=== PATIENT | female | born 1965 | race Hispanic/Latino ===

== ENCOUNTER → 2018-10-06 | Outpatient (CLI) | payer BC ==
--- NOTE | 2018-10-13 08:28 | Diagnostic Imaging Report ---
#[id number] - MGSCRBIL #BILATERAL DIGITAL SCREENING MAMMOGRAM WITH CAD: 10/06/2018 CLINICAL: Routine screening. Comparison is made to exams dated: 07/14/2017 mammogram and 06/04/2017 mammogram - [facility] [place]. Current study contains 6 films. The tissue of both breasts is extremely dense, which lowers the sensitivity of mammography. Current study was also evaluated with a Computer Aided Detection (CAD) system. There are benign calcifications in both breasts. No significant masses, calcifications, or other findings are seen in either breast. There has been no significant interval change. IMPRESSION: BENIGN There is no mammographic evidence of malignancy. A 1 year screening mammogram is recommended. The patient will be notified by letter of the results. Faustino orellana/jackie:10/12/2018 16:18:33 Lumber Cutter: Kaylee NGO(R)(M), [facility] letter sent: Compared to Prior B9 Mammogram BI-RADS: 2 Benign
== END ==
LOC: MAMMO 11:01
PROVIDERS: ATTEND Internal Medicine
DX: Z12.31 Encounter for screening mammogram for malignant neoplasm of breast (principal)
CPT/HCPCS: 77067

== ENCOUNTER → 2019-01-19 | Outpatient (CLI) | payer BC ==
--- NOTE | 2019-01-19 14:42 | Diagnostic Imaging Report ---
Exam: Bone mineral density study. Indication: Osteoporosis. The patient history questionnaire was completed and is available on PACS. Comparison: None Discussion: Evaluation of the left hip and lumbar spine was performed. The study is technically adequate. The patient's fracture risk is compared to an age-matched control. The patient denies prior surgery/fracture of the spine, hips or forearm. Left femoral neck bone mineral density: 0.863 g/cm2, T-score is -0.1, Z-score is 0.9. Left hip total bone mineral density: 0.973 g/cm2, T-score is 0.1, Z-score is 0.8. Lumbar spine total bone mineral density: 0.918 gm/cm2, T-score is -1.2, Z-score is -0.1. Impression: 1. Bone mineralization shows osteopenia. Fracture risk is moderate. 2. With a Z score of -0.1, the bone mineral density is normal for someone of this age. However, bone mineral density is osteopenic relative to young adult normals. Recommendations: Medical evaluation for secondary causes of low bone mineral density may be appropriate. Correlate clinically for the necessity and timing of the next bone mineral density study. Staff: Castro Signed by: Dr. Raul Erazo M.D. on 01/19/2019 2:39 PM
== END ==
LOC: DX 10:56
PROVIDERS: ATTEND Internal Medicine
DX: M81.0 Age-related osteoporosis without current pathological fracture (principal)
CPT/HCPCS: 77080

== ENCOUNTER 2019-08-26 19:04 | Inpatient (IN) | payer BC ==
[~2019-08-26] VITALS: Ht 157.5 cm; Wt 94.5 kg
[~2019-08-26 19:04] MED LIST changes: -ATORVASTATIN CA20 MG PO; -DIATRIZOATE MEGL/DIATRIZOA SOD 30 ML BTL PO ONE; +FENTANYL CITRATE/PF 100MCG/2 ML INJ ONE; -IOPAMIDOL 370 MG/ML 200 ML INFUS..BTL INJ ONE; -LISINOPRIL10 MG PO; -METFORMIN HCL500 MG PO; +MIDAZOLAM HCL 2 MG/2 ML VIAL ONE; -SODIUM CHLORIDE 0.9% 50ML 50 ML ONE
[2019-08-26] MEDS ORDERED: ONDANSETRON HCL INJ 2MG/ML 2ML 2 MG/ML VIAL IV ONE (19:06)
[2019-08-26] MEDS ORDERED: LEVOFLOXACIN 750MG/D5W 150ML 150 ML IV ONE (19:06)
[2019-08-26] MEDS ORDERED: SODIUM CHLORIDE 0.9% 1000ML 1,000 ML IV STA ×2 (19:06)
[2019-08-26] MEDS ORDERED: FAMOTIDINE 20 MG/2 ML VIAL IV ONE (19:06)
[2019-08-26] MEDS ORDERED: MORPHINE SULFATE 2 MG/ML SYR 1ML IV ONE (19:06)
[2019-08-26] MEDS ORDERED: METRONIDAZOLE 500MG/NS 100ML 100 ML IV ONE (19:06)
--- OUTSIDE RECORDS SUMMARY | 2019-08-26 19:06 | XMS REPORT ---
Author Author [facility] Address Unknown Phone Unavailable Care Team Providers Care Home Theater Experience Expert Name Role Phone Verna NARAYANAN Unavailable Unavailable Problems This patient has no known problems. Allergies, Adverse Reactions, Alerts This patient has no known allergies or adverse reactions. Medications This patient has no known medications. Results Test Description Test Time Test Comments Text Results Atomic Results Result Comments CT ABDOMEN/PELVIS W 2019-08-26 18:48:00 [place] [address] Patient Name: NANNETTE QUINTEROS MR #: [id number] : 1965 Age/Sex: 54/F Req #: [id number] [facility] Physician: Ordered by: CHARAN NARAYANAN MD Report #: [id number] Location: CT Room/Bed: Procedure: [id number] CT/CT ABDOMEN/PELVIS W Exam Date: 08/26/19 Exam Time: 1830 REPORT STATUS: Signed EXAM: CT Abdomen and Pelvis WITH contrast INDIC ATION: Right lower abdominal pain. Diverticulitis. Hypertension. Diabetes. White blood cell count high COMPARISON: None. TECHNIQUE: Abdomen and pelvis were scanned utilizing a multidetector helical scanner from the lung base to the pubic symphysis after administration of IV contrast. Coronal and sagittal reformations were obtained. Routine protocol was performed. Scan was performed when during portal venous phase. IV CONTRAST: 100 mL of Isovue 370 ORAL CONTRAST: Gastrografin COMPLICATIONS: None RADIATION DOSE: Total DLP: 818 mGy*cm Estimated effective dose: (DLP x 0.015 x size factor) mSv CTDIvol has been reviewed. It is below the limits set by the Radiation Protocol Committee (RPC). Dose modulation, iterative reconstruction, and/or weight based adjustment of the mA/kV was utilized to reduce the radiation dose to as low as reasonably achievable. FINDINGS: LINES and TUBES: None. LOWER THORAX: Unremarkable HEPATOBILIARY: No focal hepatic lesions. No biliary ductal dilation. GALLBLADDER: No radio-opaque stones or sludge. No wall thickening. SPLEEN: No splenomegaly. PANCREAS: No focal masses or ductal dilatation. ADRENALS: 1 cm solid right adrenal gland nodule incompletely characterized. KIDNEYS/URETERS: Kidneys enhance symmetrically. No hydronephrosis. No cystic or solid mass lesions. No stones. GI TRACT: Marked inflammatory change and suspected abscess in the region of the appendix/proximal colon measuring approximately 5.3 cm. Enlarged lymph node in the right lower quadrant of the abdomen with adjacent inflammatory change in the fat. Suspected appendicolith. Findings consistent with acute appendicitis with abscess formation. No definite free air is seen. PELVIC ORGANS/BLADDER: Unremarkable. LYMPH NODES: No lymphadenopathy. VESSELS: Unremarkable. PERITONEUM / RETROPERITONEUM: No free air or fluid. BONES: Unremarkable. SOFT TISSUES: Unremarkable. IMPRESSION: 1. Marked inflammatory change and suspected abscess in the region of the appendix/proximal colon measuring approximately 5.3 cm. Enlarged lymph node in the right lower quadrant of the abdomen with adjacent inflammatory change in the fat. Suspected appendicolith. Findings consistent with acute appendicitis with abscess formation. No definite free air is seen. 2. 1 cm solid right adrenal gland nodule incompletely characterized. Nonemergent MRI adrenal mass protocol recommended. 3. Findings were c onveyed to the ordering physician Dr. Narayanan by the fish technologist and the patient was advised to proceed to the emergency department. Findings discussed with the ER physician Dr. Polk by Dr. Montes De Oca on 08/26/2019 at 6:56 PM Signed by: Dr. Wesly Montes De Oca M.D. on 08/26/2019 6:59 PM Dictated By: WESLY MONTES DE OCA MD, MD 58 Transcribed By: PIPO on 08/26/191858 COPY TO: CHARAN NARAYANAN MD BONE DXA DUAL ENERGY 2019-01-19 11:59:00 [place] [address] Patient Name: NANNETTE QUINTEROS MR #: [id number] : 1965 Age/Sex: 53/F Req #: [id number] Adm Physician: Ordered by: CHARAN NARAYANAN MD Report #: [id number] Location: DX Room/Bed: Procedure: [id number] DX/BONE DXA DUAL ENERGY Exam Date: Exam Time: REPORT STATUS: Signed Exam: Bone mineral density study. Indication: Osteoporosis. The patient history questionnaire was completed and is available on PACS. Comparison: None Discussion: Evaluation of the left hip and lumbar spine was performed. The study is technically adequate. The patient's fracture risk is compared to an age-matched control. The patient denies prior surgery/fracture of the spine, hips or forearm. Left femoral neck bone mineral density: 0.863 g/cm2, T-score is -0.1, Z-score is 0.9. Left hip total bone mineral density: 0.973 g/cm2, T-score is 0.1, Z-score is 0.8. Lumbar spine total bone mineral density: 0.918 gm/cm2, T-score is -1.2, Z- score is -0.1. Impression: 1. Bone mineralization shows osteopenia. Fracture risk is moderate. 2. With a Z score of -0.1, the bone mineral density is normal for someone of this age. However, bone mineral density is osteopenic relative to young adult normals. Recommendations: Medical evaluation for secondary causes of low bone mineral density may be appropriate. Correlate clinically for the necessity and timing of the next bone mineral density study. Staff: Castro Signed by: Dr. Mervin Romero M.D. on 01/19/2019 2:39 PM Dictated By: MERVIN ROMERO MD 38 Transcribed By: PIPO on 01/19/191438 COPY TO: CHARAN NARAYANAN MD MAMMOGRAPHY DIGITAL SCR BILAT 2018-10-06 12:31:00 [place] [address] Patient Name: NANNETTE QUINTEROS MR #: [id number] : 1965 Age/Sex: 53/F Req #: [id number] [facility] Physician: Ordered by: CHARAN NARAYANAN MD Report #: [id number] Location: MAMMO Room/Bed: Procedure: [id number] MG/MAMMOGRAPHY DIGITAL SCR BILAT Exam Date: 10/06/18 Exam Time: 1125 REPORT STATUS: Signed #[id number] - MGSCRBIL #BILATERAL DIGITAL SCREENING MAMMOGRAM WITH CAD: 10/06/2018 CLINICAL: Routine screening. Comparison is made to exams dated: 07/14/2017 mammogram and 06/04/2017 mammogram - [facility] [place]. Current study contains 6 films. The tissue of both breasts is extremely dense, which lowers the sensitivity of mammography. Current study was also evaluated with a Computer Aided Detecti on (CAD) system. There are benign calcifications in both breasts. No significant masses, calcifications, or other findings are seen in either breast. There has been no significant interval change. IMPRESSION: BENIGN There is no mammographic evidence of malignancy. A 1 year screening mammogram is recommended. The patient will be notified by letter of the results. Marilu orellana/jannette:10/12/2018 16:18:33 Rail Signal Worker: Kaylee NGO(Mary Anne)(M), [facility] letter sent: Compared to Prior B9 Mammogram BI-RADS: 2 Benign Dictated By: MARILU MILLIGAN DO 17 Transcribed By: JANNETTE on 10/12/181617 COPY TO: CHARAN NARAYANAN MD US BREAST COMPLETE LEFT [place] [address] Patient Name: NANNETTE QUINTEROS MR #: [id number] : 1965 Age/Sex: 52/F Req #: [id number] Adm Physician: Ordered by: CHARAN NARAYANAN MD Report #: [id number] Location: MAMMO Room/Bed: Procedure: [id number] US/US BREAST COMPLETE LEFT Exam Date: 07/14/17 Exam Time: 1126 REPORT STATUS: Signed #[id number] - USBRECOMLT ULTRASOUND OF THE LEFT BREAST : 07/14/2017 No prior exams were available for comparison. Color flow and real-time ultrasound were performed on the entire left breast with scanning in all four quadrants, retroareolar region and the left axilla. No cystic or solid abnormality is identified. IMPRESSION: NEGATIVE There is no sonographic evidence of malignancy. A 1 year screening mammogram is recommended. Marilu Milligan Jr., D.O. cw/:07/14/2017 12:09:35 Rail Signal Worker: BATOOL NGO, [facility] letter sent: Normal Exam Ultrasound BI-RADS: 1 Negative Dictated By: MRAILU MILLIGAN DO 120 Transcribed By: JANNETTE on 07/14/17 120 COPY TO: CHARAN NARAYANAN MD MAMMOGRAPHY DIGITAL DX UNI LT [place] [address] Patient Name: NANNETTE QUINTEROS MR #: [id number] : 1965 Age/Sex: 52/F Req #: [id number] Adm Physician: Ordered by: CHARAN NARAYANAN MD Report #: [id number] Location: MAMMO Room/Bed: Procedure: [id number] MG/MAMMOGRAPHY DIGITAL DX UNI LT Exam Date: 07/14/17 Exam Time: 1036 REPORT STATUS: Signed #[id number] - MGDXLT #UNILATERAL LEFT DIGITAL DIAGNOSTIC MAMMOGRAM WITH SPOT COMPRESSION: 07/14/2017 Comparison is made to exams dated: 06/04/2017 mammogram and 04/15/2016 mammogram - [facility] [place]. Current study contains 2 films. The tissue of the left breast is heterogeneously dense. This may lower the sensitivity of mammography. The density identified on the prior mammogram as appearing more prominent appears to press out. However, ultrasound will be carried out to help exclude subtle lesions. No significant masses, calcifications, or other findings are seen in the breast. IMPRESSION: INCOMPLETE: NEEDS ADDITIONAL IMAGING EVALUATION No definite mass identified with focal spot compression. Ultrasound of the left breast will be performed today to help exclude a subtle lesison. Marilu Milligan Jr., D.O. cw/:07/14/2017 15:11:33 Rail Signal Worker: Kaylee CHOWDARY)(M)[facility] Mammogram BI-RADS: 0 Indeterminate Dictated By: MARILU MILLIGAN DO 10 Transcribed By: JANNETTE on 07/14/171510 COPY TO: CHARAN NARAYANAN MD
[2019-08-26] MEDS ORDERED: SODIUM CHLORIDE 0.9% 1000ML 1,000 ML IV SCH (19:24)
[2019-08-26] MEDS ORDERED: ONDANSETRON HCL INJ 2MG/ML 2ML 2 MG/ML VIAL IV PRN (19:30)
[2019-08-26] MEDS ORDERED: MORPHINE SULFATE 2 MG/ML SYR 1ML IV PRN (19:30)
[2019-08-26] MEDS ORDERED: DEXTROSE 50% SYRINGE 50 ML IV PRN (19:30)
[2019-08-26] MEDS ORDERED: PROPOFOL IV EMULSION 10 MG/ML 20 ML VIAL ONE (19:38)
[2019-08-26] MEDS ORDERED: DEXAMETHASONE SOD PHOS INJ 4 MG/ML VIAL ONE (19:38)
[2019-08-26] MEDS ORDERED: ACETAMINOPHEN 1000 MG/100 ML IV ONE (19:38)
[2019-08-26] MEDS ORDERED: ONDANSETRON HCL INJ 2MG/ML 2ML 2 MG/ML VIAL ONE ×2 (19:38→22:39)
[2019-08-26] MEDS ORDERED: KETOROLAC TROMETHAMINE 30 MG/ML VIAL ONE (19:38)
[2019-08-26] MEDS ORDERED: SUCCINYLCHOLINE 200 MG/10 ML SYR ONE (19:38)
[2019-08-26] MEDS ORDERED: ROCURONIUM BROMIDE 10 MG/ML 5ML VIAL ONE (19:38)
[2019-08-26] MEDS ORDERED: LIDOCAINE HCL 2% LOCAL INJ 5 ML SDV VIAL INJ ONE (19:38)
--- NOTE | 2019-08-26 20:19 | Diagnostic Imaging Report ---
EXAMINATION: CHEST SINGLE (PORTABLE) INDICATION: Cough. Appendicitis ^ERMD ORDER ^[id number] ^2009 ^Y COMPARISON: None FINDINGS: TUBES and LINES: None. LUNGS: Lungs are well inflated. Lungs are clear. There is no evidence of pneumonia or pulmonary edema. PLEURA: No pleural effusion or pneumothorax. HEART AND MEDIASTINUM: The cardiomediastinal silhouette is unremarkable. BONES AND SOFT TISSUES: No acute osseous lesion. Soft tissues are unremarkable. UPPER ABDOMEN: No free air under the diaphragm. IMPRESSION: No acute thoracic abnormality. Signed by: Dr. Wesly Montes De Oca M.D. on 08/26/2019 8:16 PM
[2019-08-26 20:29] LABS: BASOPHILS % 0.4 % (0.0-1.0); EOSINOPHILS # (AUTO) 0.1 (0.0-0.4); EOSINOPHILS % 0.9 % (0.0-6.0); HEMATOCRIT 35.2 % (34.2-44.1); HEMOGLOBIN 11.3 g/dL (12.0-16.0); LYMPHOCYTES # (AUTO) 2.5 (1.0-3.2); LYMPHOCYTES % 23.5 % (18.0-39.1); MEAN CORPUSCULAR HEMOGLOBIN 29.1 pg (28-32); MEAN CORPUSCULAR HGB CONC 32.1 g/dL (31-35); MEAN CORPUSCULAR VOLUME 90.7 fL (81-99); MONOCYTES # (AUTO) 0.9 (0.2-0.8); MONOCYTES % 8.9 % (4.4-11.3); NEUTROPHILS # (AUTO) 6.9 (2.1-6.9); NEUTROPHILS % 65.4 % (38.7-80.0); PLATELET COUNT 350 x10e3/uL (140-360); RED BLOOD COUNT 3.88 x10e6/uL (3.6-5.1); RED CELL DISTRIBUTION WIDTH 13.9 % (11.7-14.4)
[2019-08-26 20:42] LABS: BILIRUBIN,URINE NEGATIVE (NEGATIVE); CLARITY,URINE SL CLOUDY (CLEAR); COLOR,URINE YELLOW (YELLOW); KETONES,URINE 1+ (NEGATIVE); LEUKOCYTE ESTERASE ,URINE NEGATIVE (NEGATIVE); NITRITE,URINE NEGATIVE (NEGATIVE); PROTEIN,URINE DIPSTICK NEGATIVE (NEGATIVE); URINE UROBILINOGEN 0.2 mg/dL (0.2 - 1)
[2019-08-26 20:50] LABS: ALANINE AMINOTRANSFERASE 32 IU/L (0-55); ALBUMIN 2.9 g/dL (3.5-5.0); ALBUMIN/GLOBULIN RATIO 0.8 (0.8-2.0); ALKALINE PHOSPHATASE 133 IU/L (40-150); ANION GAP 15.6 mmol/L (8-16); BLOOD UREA NITROGEN < 5 mg/dL (7-26); CALCIUM 9.5 mg/dL (8.4-10.2); CARBON DIOXIDE 24 mmol/L (22-29); CHLORIDE 99 mmol/L (98-107); CREATINE KINASE 17 IU/L (29-168); CREATININE, SERUM < 0.30 mg/dL (0.57-1.11); EST GLOMERULAR FILTRATION RATE > 60 ML/MIN (60-); GLUCOSE 116 mg/dL (74-118); LIPASE 14 U/L (8-78); MAGNESIUM 1.8 MG/DL (1.3-2.1); POTASSIUM 3.6 mmol/L (3.5-5.1); SODIUM 135 mmol/L (136-145)
[2019-08-26 20:59] LABS: BUN/CREATININE RATIO 17 (6-25)
[2019-08-26] MEDS ORDERED: BUPIVACAINE 0.5%/EPI 30 ML SDV INJ ONE (21:00)
[2019-08-26] MEDS ORDERED: INSULIN REGULAR, HUMAN 100 UNIT/1 ML 3ML VIAL SQ SCH (21:00)
[2019-08-26 21:02] LABS: EPITHELIAL CELLS,URINE RARE /LPF
[2019-08-26 21:06] LABS: PROTHROMBIN TIME 13.7 seconds (11.9-14.5)
[2019-08-26 21:07] LABS: PARTIAL THROMBOPLASTIN TIME 36.2 seconds (23.8-35.5)
[2019-08-27] VITALS (9 sets, daily range): BP systolic 117–141; BP diastolic 58–71
[2019-08-27] MEDS ORDERED: METRONIDAZOLE 500MG/NS 100ML 100 ML IV SCH
[2019-08-27] MEDS ORDERED: DEXTROSE 50% SYRINGE 50 ML IV PRN (00:15)
[2019-08-27] MEDS ORDERED: SODIUM CHLORIDE 0.9% 1000ML 1,000 ML IV STA (00:23)
--- NOTE | 2019-08-27 00:23 | NUR ---
PATIENT WAS BROUGHT FROM PACU S/P LAP APPENDECTOMY.ASSESSMENT DONE.NO RESP.DISTRESS.IV TO RAC #20 G PATENT.PERATLA IS PLACED.3 TROCHAR SITES TO ABDOMEN WITH CHRIST DRAIN IS IN PLACE.BED LOCKED AN DIN LOWEST POSITION.PHONE AND CALL LIGHT WITHIN REACH.INSTRUCTED TO CALL FOR ASSISTANCE NEEDED.
[2019-08-27] MEDS: METRONIDAZOLE 500MG/NS 100ML 100 ML IV SCH ×4 (00:29→18:00)
[2019-08-27] MEDS: MORPHINE SULFATE INJ 4 MG/ML INJ 1ML IV PRN ×5 (00:45→20:24)
[2019-08-27] MEDS: ONDANSETRON HCL INJ 2MG/ML 2ML 2 MG/ML VIAL IV PRN ×3 (00:51→09:30)
[2019-08-27] MEDS ORDERED: METFORMIN HCL500 MG PO (00:58)
[2019-08-27] MEDS ORDERED: LISINOPRIL10 MG PO (00:58)
[2019-08-27] MEDS ORDERED: ATORVASTATIN CA20 MG PO (00:58)
--- NOTE | 2019-08-27 03:41 | Consultation ---
DATE OF CONSULTATION: 08/26/2019 CHIEF COMPLAINT: Abdominal pain. HISTORY: Patient is a 54-year-old female with 1-week history of pain in right lower quadrant with intermittent vomiting. She denies fever, chills, or diarrhea. PAST MEDICAL HISTORY: Positive for hypertension, diabetes. PAST SURGICAL HISTORY: Negative. ALLERGIES: SHE IS ALLERGIC TO PENICILLIN. SOCIAL HABITS: She does not smoke or drink alcohol. REVIEW OF SYSTEMS: No chest pain or shortness of breath, or cough. PHYSICAL EXAMINATION: VITAL SIGNS: Stable, afebrile. GENERAL: She is awake, alert, in tywa-dh-pqzpopiu discomfort. HEENT: Sclerae nonicteric. NECK: Supple. LUNGS: Clear. HEART: Regular rate and rhythm. ABDOMEN: Soft with guarding, tenderness in the right lower quadrant with mild rebound. LABORATORY DATA: White cell count 10.5. CT scan reported appendicitis with perforation and localized abscess. ASSESSMENT: Acute appendicitis with perforation and abscess formation. PLAN: Laparoscopic appendectomy, attendant risks discussed. Cal Diaz MD DNJordan/MODL /[id number]
--- NOTE | 2019-08-27 03:56 | Operative Report ---
DATE OF PROCEDURE: 08/26/2019 SURGEON: Cal Diaz MD PREOPERATIVE DIAGNOSIS: Ruptured appendicitis. POSTOPERATIVE DIAGNOSIS: Ruptured appendicitis with abscess formation. OPERATIVE PROCEDURE: Laparoscopic appendectomy. ANESTHESIA: General endotracheal. INDICATION FOR SURGERY: A 54-year-old female with history of right lower quadrant abdominal pain for one week with CT scan showing ruptured appendix with abscess formation. The patient consented for laparoscopic appendectomy. Attendant risks discussed. PROCEDURE FINDING: Ruptured appendix with fecalith and abscess. DESCRIPTION OF PROCEDURE: The patient was brought to the OR intubated. The abdomen was prepped and draped in sterile fashion. An infraumbilical incision was made and a 12 mm port insufflation then began under direct vision of the port site placed in right lower quadrant and suprapubic region. A phlegmon was encountered. It was broken up using blunt dissection. A large amount of pus was evacuated and suctioned. We then identified the perforated appendicitis with the perforation at the mid body. The fecalith is retrieved out of the peritoneal cavity. The neck and appendix exposed by taking the mesoappendix with the LigaSure instrument. The neck of the appendix was then controlled with Endoloop tie of 0 PDS. The appendix is amputated distal to the tie and placed in Endopouch and retrieved out the peritoneal cavity. Operative field was then irrigated. Hemostasis achieved. A 10-Ecuadorean Rob CHRIST drain placed in the retrocecal region and taken out through the suprapubic port site. All the ports removed under direct vision. Fascia was closed with Vicryl. Skin then closed with subcuticular stitch. The patient was extubated and transported to recovery room. ESTIMATED BLOOD LOSS: 20 mL. Cal Diaz MD DNL/MODL /[id number]
[2019-08-27 06:23] LABS: BASOPHILS % 0.2 % (0.0-1.0); HEMOGLOBIN 10.5 g/dL (12.0-16.0); LYMPHOCYTES % 8.7 % (18.0-39.1); MEAN CORPUSCULAR HGB CONC 31.8 g/dL (31-35); MEAN CORPUSCULAR VOLUME 91.2 fL (81-99); MONOCYTES # (AUTO) 0.6 (0.2-0.8); MONOCYTES % 5.1 % (4.4-11.3); NEUTROPHILS # (AUTO) 9.8 (2.1-6.9); NEUTROPHILS % 84.9 % (38.7-80.0); PLATELET COUNT 316 x10e3/uL (140-360); RED BLOOD COUNT 3.62 x10e6/uL (3.6-5.1); RED CELL DISTRIBUTION WIDTH 13.8 % (11.7-14.4)
[2019-08-27 06:51] LABS: ALANINE AMINOTRANSFERASE 36 IU/L (0-55); ALBUMIN 2.6 g/dL (3.5-5.0); ALBUMIN/GLOBULIN RATIO 0.7 (0.8-2.0); ALKALINE PHOSPHATASE 145 IU/L (40-150); ANION GAP 18.2 mmol/L (8-16); BLOOD UREA NITROGEN 5 mg/dL (7-26); BUN/CREATININE RATIO 9 (6-25); CALCIUM 8.9 mg/dL (8.4-10.2); CARBON DIOXIDE 20 mmol/L (22-29); CHLORIDE 105 mmol/L (98-107); CREATININE, SERUM 0.57 mg/dL (0.57-1.11); EST GLOMERULAR FILTRATION RATE > 60 ML/MIN (60-); GLUCOSE 228 mg/dL (74-118); POTASSIUM 4.2 mmol/L (3.5-5.1); SODIUM 139 mmol/L (136-145)
[2019-08-27] MEDS: INSULIN REGULAR, HUMAN 100 UNIT/1 ML 3ML VIAL SQ SCH ×4 (07:30→20:16)
--- NOTE | 2019-08-27 07:30 | NUR ---
Received patient, a/ox3, in bed, call light within reach, bed in low locked position, will monitor.
--- NOTE | 2019-08-27 07:32 | NUR ---
Bed side shift report given to the oncoming Rn.stable condition.
[2019-08-27] MEDS: FAMOTIDINE 20 MG/2 ML VIAL IV SCH ×2 (08:52→17:36)
[2019-08-27] MEDS ORDERED: FAMOTIDINE 20 MG/2 ML VIAL IV SCH (09:00)
[2019-08-27 09:33] LABS: BAND NEUTROPHILS % (MANUAL) 2 %; LYMPHOCYTES % (MANUAL) 15 % (19-48); MONOCYTES % (MANUAL) 6 % (3.4-9.0); NEUTROPHILS % (MANUAL) 77 % (40-74)
[2019-08-27 09:34] LABS: PLATELET ESTIMATE ADEQUATE; PLATELET MORPHOLOGY COMMENT NORMAL; RBC MORPHOLOGY COMMENT NORMAL
--- NOTE | 2019-08-27 10:24 | NUR ---
Patient OOB and ambulated hallway, c/o pains and medicated, sitting on chair in the room, will monitor.
[2019-08-27] MEDS ORDERED: LEVOFLOXACIN 750MG/D5W 150ML 150 ML IV SCH (17:00)
--- NOTE | 2019-08-27 17:35 | History and Physical ---
She is a 54-year-old female patient with history of diabetes mellitus and hypertension, presented to the emergency room with a complaint of lower abdominal mild pain. HISTORY OF PRESENT ILLNESS: The patient had presented to outpatient a week ago with mild diffuse generalized abdominal pain with nausea and vomiting, and the patient was planned for an outpatient CAT scan. The patient was in the outpatient CAT scan yesterday. The CAT scan had showed perforated appendix, so the patient was sent to the emergency room. ALLERGIES: THE PATIENT IS ALLERGIC TO PENICILLIN. PAST MEDICAL HISTORY: Diabetes mellitus and hypertension. MEDICATIONS: The patient was on Lipitor, lisinopril, and metformin. SOCIAL HISTORY: The patient denies smoking and denies any alcohol. PAST SURGICAL HISTORY: Negative. REVIEW OF SYSTEMS: Detailed review of systems and multisystem review of system examination was done and as per history of present illness. PHYSICAL EXAMINATION: GENERAL: She is a middle-aged female patient, lying in a bed, not in any acute distress. The patient is postop sitting in a chair. VITAL SIGNS: Temperature 98.4, pulse rate 79, blood pressure 132/62, and respiration rate is 18. HEENT: Normocephalic and atraumatic. NECK: No JVD. No lymphadenopathy. LUNGS: Bilateral equal fair air entry. No rales. No rhonchi. HEART: S1 and S2. Regular. No murmur. No gallop. ABDOMEN: Soft. Bowel sounds diminished. NEURO: No focal neurological deficit. The patient is a postop laparoscopic appendectomy. ADMITTING IMPRESSION/DIAGNOSES: Acute appendicitis, perforated appendix, diabetes mellitus, and hypertension. PLAN: The patient will be admitted with the above diagnosis. The patient will be given postop care and the patient will be given antibiotics with Levaquin and Flagyl and IV fluids. The patient will be kept n.p.o. MD CASSIE Randall/CRYSTAL /[id number]
[2019-08-27] MEDS: LEVOFLOXACIN 750MG/D5W 150ML 150 ML IV SCH (17:45)
--- NOTE | 2019-08-27 18:09 | NUR ---
Patient OOB and had sat on chair for dinner, tolerated liquid diet, had one episode of vomiting after lunch but no more vomiting, abdl pains well managed, CHRIST drain in place and draining, tolerating abx, will monitor.
--- NOTE | 2019-08-27 19:00 | NUR ---
RECEIVED PATIENT IN BEDSIDE REPORT. PATIENT REPORTS PAIN IS MANAGEABLE AT THIS TIME. IV ABX RUNNING AT THIS TIME. NO S&S OF DISTRESS NOTED. BED LOCKED IN LOWEST POSITION, SIDE RAILS UPX2, CALL LIGHT IN REACH. FAMILY MEMBER AT BEDSIDE. PERALTA DRAINING CLEAR, YELLOW URINE.
[2019-08-27] MEDS: ATORVASTATIN 20 MG TAB PO SCH (20:28)
[2019-08-28] VITALS (8 sets, daily range): BP systolic 136–161; BP diastolic 64–80
[2019-08-28] MEDS: METRONIDAZOLE 500MG/NS 100ML 100 ML IV SCH ×4 (00:52→19:01)
[2019-08-28] MEDS: INSULIN REGULAR, HUMAN 100 UNIT/1 ML 3ML VIAL SQ SCH ×4 (07:30→21:00)
[2019-08-28] MEDS: ONDANSETRON HCL INJ 2MG/ML 2ML 2 MG/ML VIAL IV PRN (08:48)
[2019-08-28] MEDS: MORPHINE SULFATE INJ 4 MG/ML INJ 1ML IV PRN (08:48)
[2019-08-28] MEDS: FAMOTIDINE 20 MG/2 ML VIAL IV SCH ×2 (08:51→17:02)
[2019-08-28] MEDS: LISINOPRIL 10 MG TAB PO SCH (08:52)
--- NOTE | 2019-08-28 08:55 | NUR ---
Call to Dr. Diaz's service regarding d/c of Sneed cath and if diet can be upgraded. Waiting for call back
--- NOTE | 2019-08-28 09:15 | NUR ---
Dr. Diaz returned call and orders to silas/mino Sneed, initiate Hoople for pain management and advance diet as tolerated.
--- NOTE | 2019-08-28 10:03 | NUR ---
Sneed catheter removed at this time, patient encouraged to get OOB and ambulate more, verbalized understanding.
--- NOTE | 2019-08-28 10:37 | NUR ---
Patient OOB and ambulating hallway, stated she passed gas, pains well managed, will monitor.
[2019-08-28] MEDS: LEVOFLOXACIN 750MG/D5W 150ML 150 ML IV SCH (17:02)
--- NOTE | 2019-08-28 17:08 | NUR ---
Patient alert and responsive, has been OOB on chair for most of today, no resp distress, passing gas, no fever, CHRIST drain in place, pains well managed, tolerated full liquid diet and advanced to GI soft, will monitor.
[2019-08-28] MEDS: HYDROCODONE/APAP 5MG-325MG TAB PO PRN (17:56)
--- NOTE | 2019-08-28 18:53 | NUR ---
Patient tolerated GI soft diet and voided post removal of Sneed
--- NOTE | 2019-08-28 19:00 | NUR ---
RECEIVED PATIENT IN BEDSIDE REPORT. PATIENT RESTING IN BED AT THIS TIME, STATES THERE IS NO PAIN. PATIENT PASSING GAS EASILY, STILL NO BM, PATIENT VERBALIZED SHE WILL INFORM STAFF WHEN SHE HAS A BM. REITERATED TO PATIENT IMPORTANCE OF TURNING, COUGHING, AND DEEP BREATHING TO PROTECT LUNGS, PATIENT AND FAMILY MEMBER VERBALIZED UNDERSTANDING. NO S&S OF DISTRESS NOTED. BED LOCKED IN LOWEST POSITION, SIDE RAILS UPX2, CALL LIGHT IN REACH.
--- NOTE | 2019-08-28 19:03 | NUR ---
Report given to on coming nurse, rounds completed and patient is stable.
[2019-08-28] MEDS: ATORVASTATIN 20 MG TAB PO SCH (21:02)
[2019-08-29 00:01] VITALS: BP 139/65
[2019-08-29] MEDS: METRONIDAZOLE 500MG/NS 100ML 100 ML IV SCH ×3 (00:30→12:29)
[2019-08-29 04:00] VITALS: BP 163/67
[2019-08-29 05:37] LABS: BASOPHILS % 0.4 % (0.0-1.0); EOSINOPHILS # (AUTO) 0.2 (0.0-0.4); EOSINOPHILS % 1.9 % (0.0-6.0); HEMATOCRIT 33.9 % (34.2-44.1); HEMOGLOBIN 10.7 g/dL (12.0-16.0); LYMPHOCYTES # (AUTO) 2.3 (1.0-3.2); LYMPHOCYTES % 24.8 % (18.0-39.1); MEAN CORPUSCULAR HEMOGLOBIN 29.1 pg (28-32); MEAN CORPUSCULAR HGB CONC 31.6 g/dL (31-35); MEAN CORPUSCULAR VOLUME 92.1 fL (81-99); MONOCYTES # (AUTO) 0.7 (0.2-0.8); NEUTROPHILS # (AUTO) 5.8 (2.1-6.9); NEUTROPHILS % 63.1 % (38.7-80.0); PLATELET COUNT 394 x10e3/uL (140-360); RED BLOOD COUNT 3.68 x10e6/uL (3.6-5.1); RED CELL DISTRIBUTION WIDTH 13.9 % (11.7-14.4)
[2019-08-29 06:02] LABS: ALANINE AMINOTRANSFERASE 21 IU/L (0-55); ALBUMIN 2.4 g/dL (3.5-5.0); ALBUMIN/GLOBULIN RATIO 0.7 (0.8-2.0); ALKALINE PHOSPHATASE 115 IU/L (40-150); ANION GAP 15.5 mmol/L (8-16); BLOOD UREA NITROGEN 7 mg/dL (7-26); BUN/CREATININE RATIO 14 (6-25); CALCIUM 8.2 mg/dL (8.4-10.2); CARBON DIOXIDE 24 mmol/L (22-29); CHLORIDE 105 mmol/L (98-107); CREATININE, SERUM 0.51 mg/dL (0.57-1.11); EST GLOMERULAR FILTRATION RATE > 60 ML/MIN (60-); GLUCOSE 145 mg/dL (74-118); POTASSIUM 3.5 mmol/L (3.5-5.1); SODIUM 141 mmol/L (136-145)
--- NOTE | 2019-08-29 07:25 | NUR ---
Received patient, a/ox3, no c/o pains, call light within reach and bed in low locked position, will monitor.
[2019-08-29] MEDS: INSULIN REGULAR, HUMAN 100 UNIT/1 ML 3ML VIAL SQ SCH ×2 (07:30→11:30)
[2019-08-29 08:33] VITALS: BP 167/75
[2019-08-29] MEDS: LISINOPRIL 10 MG TAB PO SCH (08:37)
[2019-08-29] MEDS: FAMOTIDINE 20 MG/2 ML VIAL IV SCH (08:37)
--- NOTE | 2019-08-29 08:37 | NUR ---
Patient alert and responsive, OOB to bathroom with assistance and had a medium BM, tolerated breakfast, pains well controlled. Will monitor.
[2019-08-29 08:59] VITALS: BP 167/75
--- NOTE | 2019-08-29 12:21 | NUR ---
Patient a/ox3, no resp distress, received from [facility], cellulitis to left foot, failed outpatient treatment, currently on Vancomycin and Pectezo abx, tolerated well, VSS, afebrile, call light within reach, bed in low locked position, will monitor. Addendum: 08/29/19 at 1224 by Spike Greer RN WRONG CHART
[2019-08-29] MEDS: HYDROCODONE/APAP 5MG-325MG TAB PO PRN (12:29)
[2019-08-29] MEDS: ONDANSETRON HCL INJ 2MG/ML 2ML 2 MG/ML VIAL IV PRN (12:46)
[2019-08-29] MEDS: MORPHINE SULFATE INJ 4 MG/ML INJ 1ML IV PRN (12:47)
--- NOTE | 2019-08-29 12:48 | NUR ---
Rounds by Dr. Diaz and orders to remove CHRIST drain. Removed at this time, patient with nausea post removal and pain, medicated per orders in profile, tolerated GI soft. Cleared by surgeon for discharge and attending to discharge patient.
[2019-08-29 14:19] VITALS: BP 170/77
[2019-08-29] MEDS ORDERED: TYLENOL WITH C1 EACH PO (15:25)
[2019-08-29] MEDS ORDERED: BACTRIM DS TAB1 EACH PO (15:25)
== END 2019-08-29 15:45 | disposition home or self-care (01) | DRG 340 ==
LOC: ER 19:04 → UNDOADMIN 19:31 → ERHOLD 19:31 → OR 20:36 → MED/SURG 23:26
PROVIDERS: ADMIT Internal Medicine; ATTEND Internal Medicine
PROC: 0DTJ4ZZ Resection of Appendix, Percutaneous Endoscopic Approach (ICD-10-PCS; principal; 2019-08-26 21:00)
DX: K35.33 Acute appendicitis with perforation, localized peritonitis, and gangrene, with abscess (principal); I10 Essential (primary) hypertension; E11.9 Type 2 diabetes mellitus without complications
CPT/HCPCS: 36415; 71045; 80053; 81001; 82550; 82553; 82948; 83690; 83735; 83880; 84484; 84702; 85025; 85610; 85730; 88304; 93005; 99284; J1100; J1817; J1885; J2001; J2250; J2270; J2405; J3010; J7030

== ENCOUNTER → 2019-08-26 | Outpatient (CLI) | payer BC ==
[~2019-08-26] MED LIST: ATORVASTATIN CA20 MG PO; DIATRIZOATE MEGL/DIATRIZOA SOD 30 ML BTL PO ONE; IOPAMIDOL 370 MG/ML 200 ML INFUS..BTL INJ ONE; LISINOPRIL10 MG PO; METFORMIN HCL500 MG PO; SODIUM CHLORIDE 0.9% 50ML 50 ML ONE
[2019-08-26 17:56] LABS: BLOOD UREA NITROGEN 6 mg/dL (7-26); BUN/CREATININE RATIO 10 (6-25); CREATININE, SERUM 0.59 mg/dL (0.57-1.11); EST GLOMERULAR FILTRATION RATE > 60 ML/MIN (60-)
--- NOTE | 2019-08-26 19:02 | Diagnostic Imaging Report ---
EXAM: CT Abdomen and Pelvis WITH contrast INDICATION: Right lower abdominal pain. Diverticulitis. Hypertension. Diabetes. White blood cell count high COMPARISON: None. TECHNIQUE: Abdomen and pelvis were scanned utilizing a multidetector helical scanner from the lung base to the pubic symphysis after administration of IV contrast. Coronal and sagittal reformations were obtained. Routine protocol was performed. Scan was performed when during portal venous phase. IV CONTRAST: 100 mL of Isovue 370 ORAL CONTRAST: Gastrografin COMPLICATIONS: None RADIATION DOSE: Total DLP: 818 mGy*cm Estimated effective dose: (DLP x 0.015 x size factor) mSv CTDIvol has been reviewed. It is below the limits set by the Radiation Protocol Committee (RPC). Dose modulation, iterative reconstruction, and/or weight based adjustment of the mA/kV was utilized to reduce the radiation dose to as low as reasonably achievable. FINDINGS: LINES and TUBES: None. LOWER THORAX: Unremarkable HEPATOBILIARY: No focal hepatic lesions. No biliary ductal dilation. GALLBLADDER: No radio-opaque stones or sludge. No wall thickening. SPLEEN: No splenomegaly. PANCREAS: No focal masses or ductal dilatation. ADRENALS: 1 cm solid right adrenal gland nodule incompletely characterized. KIDNEYS/URETERS: Kidneys enhance symmetrically. No hydronephrosis. No cystic or solid mass lesions. No stones. GI TRACT: Marked inflammatory change and suspected abscess in the region of the appendix/proximal colon measuring approximately 5.3 cm. Enlarged lymph node in the right lower quadrant of the abdomen with adjacent inflammatory change in the fat. Suspected appendicolith. Findings consistent with acute appendicitis with abscess formation. No definite free air is seen. PELVIC ORGANS/BLADDER: Unremarkable. LYMPH NODES: No lymphadenopathy. VESSELS: Unremarkable. PERITONEUM / RETROPERITONEUM: No free air or fluid. BONES: Unremarkable. SOFT TISSUES: Unremarkable. IMPRESSION: 1. Marked inflammatory change and suspected abscess in the region of the appendix/proximal colon measuring approximately 5.3 cm. Enlarged lymph node in the right lower quadrant of the abdomen with adjacent inflammatory change in the fat. Suspected appendicolith. Findings consistent with acute appendicitis with abscess formation. No definite free air is seen. 2. 1 cm solid right adrenal gland nodule incompletely characterized. Nonemergent MRI adrenal mass protocol recommended. 3. Findings were conveyed to the ordering physician Dr. Narayanan by the medical laboratory technologist and the patient was advised to proceed to the emergency department. Findings discussed with the ER physician Dr. Polk by Dr. Montes De Oca on 08/26/2019 at 6:56 PM Signed by: Dr. Wesly Montes De Oca M.D. on 08/26/2019 6:59 PM
== END ==
LOC: CT 16:41
PROVIDERS: ATTEND Internal Medicine
DX: K57.92 Diverticulitis of intestine, part unspecified, without perforation or abscess without bleeding (principal); R10.31 Right lower quadrant pain
CPT/HCPCS: 36415; 74177; 82565; 84520; Q9967

== ENCOUNTER 2019-09-01 08:51 | Inpatient (IN) | payer BC ==
[~2019-09-01] VITALS: Ht 157.5 cm; Wt 85.3 kg
[~2019-09-01 08:51] MED LIST changes: +ATORVASTATIN CA20 MG PO; +BACTRIM DS TAB1 EACH PO; -FENTANYL CITRATE/PF 100MCG/2 ML INJ ONE; +LISINOPRIL10 MG PO; +METFORMIN HCL500 MG PO; -MIDAZOLAM HCL 2 MG/2 ML VIAL ONE; +TYLENOL WITH C1 EACH PO
[2019-09-01] MEDS ORDERED: PANTOPRAZOLE 40 MG 10ML VIAL IV STA (09:16)
[2019-09-01] MEDS ORDERED: SODIUM CHLORIDE 0.9% 1000ML 1,000 ML IV STA (09:16)
[2019-09-01] MEDS ORDERED: ONDANSETRON HCL INJ 2MG/ML 2ML 2 MG/ML VIAL IV STA (09:16)
[2019-09-01 09:50] LABS: BASOPHILS # (AUTO) 0.1 (0.0-0.1); BASOPHILS % 0.4 % (0.0-1.0); EOSINOPHILS # (AUTO) 0.1 (0.0-0.4); EOSINOPHILS % 0.4 % (0.0-6.0); HEMOGLOBIN 14.1 g/dL (12.0-16.0); LYMPHOCYTES # (AUTO) 1.9 (1.0-3.2); LYMPHOCYTES % 10.6 % (18.0-39.1); MEAN CORPUSCULAR HEMOGLOBIN 29.1 pg (28-32); MEAN CORPUSCULAR HGB CONC 32.8 g/dL (31-35); MEAN CORPUSCULAR VOLUME 88.8 fL (81-99); MONOCYTES # (AUTO) 0.9 (0.2-0.8); MONOCYTES % 4.9 % (4.4-11.3); NEUTROPHILS # (AUTO) 14.8 (2.1-6.9); NEUTROPHILS % 81.9 % (38.7-80.0); PLATELET COUNT 577 x10e3/uL (140-360); RED BLOOD COUNT 4.84 x10e6/uL (3.6-5.1); RED CELL DISTRIBUTION WIDTH 13.9 % (11.7-14.4)
[2019-09-01 10:10] LABS: ALANINE AMINOTRANSFERASE 13 IU/L (0-55); ALBUMIN 3.1 g/dL (3.5-5.0); ALBUMIN/GLOBULIN RATIO 0.8 (0.8-2.0); ALKALINE PHOSPHATASE 99 IU/L (40-150); ANION GAP 16.3 mmol/L (8-16); BLOOD UREA NITROGEN 10 mg/dL (7-26); BUN/CREATININE RATIO 14 (6-25); CALCIUM 9.3 mg/dL (8.4-10.2); CARBON DIOXIDE 27 mmol/L (22-29); CHLORIDE 96 mmol/L (98-107); CREATINE KINASE 11 IU/L (29-168); EST GLOMERULAR FILTRATION RATE > 60 ML/MIN (60-); GLUCOSE 210 mg/dL (74-118); MAGNESIUM 2.1 MG/DL (1.3-2.1); POTASSIUM 4.3 mmol/L (3.5-5.1); SODIUM 135 mmol/L (136-145)
[2019-09-01 12:10] LABS: CREATINE KINASE MB < 1.00 ng/mL (0-4.3)
[2019-09-01] MEDS ORDERED: DIATRIZOATE MEGL/DIATRIZOA SOD 30 ML BTL PO ONE (13:03)
[2019-09-01 13:10] LABS: BILIRUBIN,URINE MODERATE (NEGATIVE); CLARITY,URINE CLEAR (CLEAR); COLOR,URINE YELLOW (YELLOW); LEUKOCYTE ESTERASE ,URINE NEGATIVE (NEGATIVE); NITRITE,URINE NEGATIVE (NEGATIVE); PROTEIN,URINE DIPSTICK NEGATIVE (NEGATIVE); URINE UROBILINOGEN 0.2 mg/dL (0.2 - 1)
[2019-09-01 13:22] LABS: KETONES,URINE 2+ (NEGATIVE)
[2019-09-01] MEDS ORDERED: PROMETHAZINE 12.5MG/ NACL 0.9% 50 ML ONE (13:26)
[2019-09-01 13:29] LABS: BACTERIA,URINE RARE /HPF; EPITHELIAL CELLS,URINE FEW /LPF
[2019-09-01] MEDS ORDERED: PROMETHAZINE 12.5MG/ NACL 0.9% 12.5 MG/50 ML BAG IV ONE (13:30)
--- NOTE | 2019-09-01 13:38 | Diagnostic Imaging Report ---
Exam: KUB - 2 views Indication: Vomiting, abdominal pain Comparison: CT abdomen and pelvis of 08/26/2019 Findings: Multiple distended air-filled loops of small bowel measure up to 6.8 cm maximal diameter and demonstrate optimal air-fluid levels on upright image. No free air. Both of lack of large bowel gas. Impression: Small bowel obstruction with multiple dilated loops of small bowel with air-fluid levels measuring up to maximum diameter of 6.8 cm. Signed by: Nicki Stovall MD on 09/01/2019 1:33 PM
--- NOTE | 2019-09-01 14:31 | NUR ---
still waiting on CT abd/pelvis
--- NOTE | 2019-09-01 15:36 | Diagnostic Imaging Report ---
EXAM: CT Abdomen and Pelvis WITH intravenous contrast INDICATION: Abdominal pain, small bowel obstruction COMPARISON: KUB of earlier the same day. TECHNIQUE: Abdomen and pelvis were scanned utilizing a multidetector helical scanner from the lung base to the pubic symphysis after administration of IV contrast. Coronal and sagittal reformations were obtained. Routine protocol was performed. Scan was performed during portal venous phase. IV CONTRAST: 100mL of Isovue 370 ORAL CONTRAST: Gastrografin RADIATION DOSE: Total DLP: 920.8 mGy*cm Dose modulation, iterative reconstruction, and/or weight based adjustment of the mA/kV was utilized to reduce the radiation dose to as low as reasonably achievable. FINDINGS: LOWER THORAX: Normal. HEPATOBILIARY: No focal hepatic lesions. No biliary ductal dilatation. The gallbladder appears unremarkable. SPLEEN: No splenomegaly. PANCREAS: No focal masses or ductal dilatation. ADRENALS: 1.4 cm right adrenal nodule appears homogeneous and measures 82 HU. KIDNEYS/URETERS: No hydronephrosis, stones, or solid mass lesions. PELVIC ORGANS/BLADDER: Unremarkable. PERITONEUM / RETROPERITONEUM: Small volume free fluid in the abdomen and pelvis. LYMPH NODES: No lymphadenopathy. VESSELS: Mild scattered atherosclerotic calcifications of the nonaneurysmal abdominal aorta and major branches. GI TRACT: Numerous loops of dilated small bowel with air-fluid levels consistent with small bowel obstruction. The dilated loops measure up to 5 cm maximum diameter. No free air or pneumatosis. Transition point is not definitively identified but likely in the right lower quadrant. No free air or pneumatosis. BONES AND SOFT TISSUES: No acute osseous injury. No suspicious lytic or blastic lesions. IMPRESSION: Small bowel obstruction with dilated loops measuring up to 5 cm. No free air or pneumatosis. Transition point not definitively identified but likely in the right lower quadrant. 1.4 cm right adrenal homogeneously enhancing nodule probably represents an adenoma. Recommend 1 year follow-up adrenal washout CT. Is stable at or greater than 1 year, no follow-up imaging is necessary. Signed by: Nicki Stovall MD on 09/01/2019 3:33 PM
[2019-09-01] MEDS ORDERED: METRONIDAZOLE 500MG/NS 100ML 100 ML IV SCH (16:45)
[2019-09-01] MEDS ORDERED: BENZOCAINE/TETRACAINE/BUTAMBEN AERO SPRAY 56 GM CAN TOP ONE (16:45)
[2019-09-01] MEDS ORDERED: ONDANSETRON HCL INJ 2MG/ML 2ML 2 MG/ML VIAL IV PRN (16:45)
[2019-09-01] MEDS ORDERED: CEFEPIME 1GM/NS 0.9% 50 ML 50 ML IV SCH (16:45)
[2019-09-01] MEDS ORDERED: PROMETHAZINE HCL (IM) 25 MG/ML VIAL IV PRN (16:45)
[2019-09-01] MEDS ORDERED: PROMETHAZINE 12.5MG/ NACL 0.9% 50 ML IV PRN (17:00)
[2019-09-01] MEDS: SODIUM CHLORIDE 0.9% 1000ML 1,000 ML IV SCH (17:29)
[2019-09-01] MEDS ORDERED: DEXTROSE 50% SYRINGE 50 ML IV PRN (19:30)
[2019-09-01 19:41] VITALS: BP 135/61
[2019-09-01] MEDS ORDERED: IOPAMIDOL 370 MG/ML 200 ML INFUS..BTL INJ ONE (20:48)
[2019-09-01] MEDS ORDERED: SODIUM CHLORIDE 0.9% 50ML 50 ML ONE (20:48)
[2019-09-01] MEDS: INSULIN REGULAR, HUMAN 100 UNIT/1 ML 3ML VIAL SQ SCH (21:00)
[2019-09-01 21:37] VITALS: BP 135/61
[2019-09-01 21:42] VITALS: BP 135/61
--- NOTE | 2019-09-01 21:42 | NUR ---
Pt admitted to room 294 via stretcher. Able to transfer to bed from stretcher x1 assist. Alert and orient to name, hospital, date, and diagnosis: Small Bowel Obstruction. c/o mild upper abd cramping pain that comes and goes. Abd large, soft, and distended. Last BM 08/31, small. Complete bedrest. NGT left mode VILLA, patent. 18g IV right AC, flushed with 10mg NS. Oriented to room. Call goodrich within reach. Will continue to monitor.
[2019-09-01] MEDS ORDERED: GLYBURIDE5 MG PO (21:44)
[2019-09-01] MEDS: MORPHINE SULFATE 2 MG/ML SYR 1ML IV PRN (22:19)
[2019-09-02] VITALS (8 sets, daily range): BP systolic 114–146; BP diastolic 58–67
--- NOTE | 2019-09-02 01:25 | History and Physical ---
This is a 54-year-old female patient of [employer], presented to the emergency room with vomiting. HISTORY OF PRESENT ILLNESS: Ms. Tutu Miles is a 54-year-old female patient, who was recently discharged after appendectomy and laparoscopic surgery. The patient was discharged home on oral antibiotic, Levaquin and Bactrim. The patient was apparently doing well, but then the patient started having . So, the patient then finally came to the emergency room. On emergency room evaluation, the patient was found to have a small-bowel obstruction, so the patient was admitted. ALLERGIES: THE PATIENT IS ALLERGIC TO PENICILLIN. PAST MEDICAL HISTORY: Hypertension. SOCIAL HISTORY: Denies smoking. Denies using alcohol. FAMILY HISTORY: Diabetes mellitus, hypertension. PAST SURGICAL HISTORY: The patient had a recent appendectomy. PHYSICAL EXAMINATION: GENERAL: She is a middle-aged female patient, lying in bed, not in any acute distress. VITAL SIGNS: Temperature 98, pulse rate is 78, respiration rate 20, blood pressure 110/70. HEENT: Normocephalic, atraumatic. NECK: No JVD. No lymphadenopathy. LUNGS: Bilateral equal fair air entry. No rales, no rhonchi. HEART: S1, S2. Regular. No murmur. No gallop. ABDOMEN: Distended. The patient has an NG tube present. NEUROLOGIC: Nonfocal. ADMITING IMPRESSION/DIAGNOSES: Small-bowel obstruction, diabetes mellitus, hypertension, hyperlipidemia, and recent abdominal surgery. PLAN: The patient will be admitted with the above diagnoses. The patient will be given IV fluids, kept n.p.o. and the patient will have NG tube suctioning done. Surgery consultation will be done by Dr. Diaz. MD CASSIE Randall/CRYSTAL /[id number]
--- NOTE | 2019-09-02 01:30 | Consultation ---
DATE OF CONSULTATION: 09/01/2019 CHIEF COMPLAINT: Nausea and vomiting. HISTORY OF PRESENT ILLNESS: The patient is a 54-year-old female, known to me from recent hospitalizations for perforated appendicitis. The patient was recently discharged home and she began experiencing nausea and vomiting and unable to tolerate any diet. She denies fever or chills. PAST MEDICAL HISTORY: Significant for hypertension and diabetes. PAST SURGICAL HISTORY: Recent appendectomy. ALLERGIES: SHE HAS ALLERGIC REACTION TO PENICILLIN. SOCIAL HABITS: No smoking or alcohol use. REVIEW OF SYSTEMS: No chest pain or shortness of breath. PHYSICAL EXAMINATION: VITAL SIGNS: Stable. She is afebrile. GENERAL: She is awake, alert, in [id number] discomfort. HEENT: Sclerae nonicteric. NECK: Supple. LUNGS: Clear. HEART: Regular rate and rhythm. ABDOMEN: [id number] distended with guarding in the epigastric region with no rebound tenderness. EXTREMITIES: Without cyanosis or edema. LABORATORY DATA: White cell count is 18, hemoglobin of 14. Creatinine of 0.7. CT of the abdomen shows small bowel obstruction with transition point likely in the right lower quadrant at recent operative site. ASSESSMENT: Postoperative ileus/intestinal obstruction. PLAN: NG tube decompression. Serial abdominal exam and x-ray. We will follow. Cal Diaz MD DNL/MODL /[id number]
[2019-09-02] MEDS: SODIUM CHLORIDE 0.9% 1000ML 1,000 ML IV SCH ×3 (02:35→16:39)
--- NOTE | 2019-09-02 05:30 | NUR ---
Transported to Radiology via w/c for KUB.
[2019-09-02 06:08] LABS: BASOPHILS % 0.3 % (0.0-1.0); EOSINOPHILS # (AUTO) 0.2 (0.0-0.4); EOSINOPHILS % 1.2 % (0.0-6.0); HEMATOCRIT 41.1 % (34.2-44.1); HEMOGLOBIN 13.3 g/dL (12.0-16.0); LYMPHOCYTES # (AUTO) 2.6 (1.0-3.2); LYMPHOCYTES % 17.4 % (18.0-39.1); MEAN CORPUSCULAR HEMOGLOBIN 28.8 pg (28-32); MEAN CORPUSCULAR HGB CONC 32.4 g/dL (31-35); MONOCYTES % 6.8 % (4.4-11.3); NEUTROPHILS # (AUTO) 10.8 (2.1-6.9); PLATELET COUNT 429 x10e3/uL (140-360); RED BLOOD COUNT 4.62 x10e6/uL (3.6-5.1); RED CELL DISTRIBUTION WIDTH 14.1 % (11.7-14.4)
[2019-09-02] MEDS: MORPHINE SULFATE 2 MG/ML SYR 1ML IV PRN (06:10)
--- NOTE | 2019-09-02 06:20 | Diagnostic Imaging Report ---
EXAM: Abdomen Radiograph 1 View(s) INDICATION: Small bowel obstruction COMPARISON: Abdominal radiograph 09/01/2019 FINDINGS: No abnormalities in the lower chest. A gastrostomy tube terminates within the gastric lumen. Dilated air-filled loops of small bowel, measuring up to 5.5 cm in diameter. Minimal air in the colon. No abnormal abdominal calcifications.. No abnormal soft tissue masses. No pneumoperitoneum. Mild degenerative changes in the lumbar spine and pelvis. IMPRESSION: A gastrostomy tube tip terminates in the gastric lumen. Bowel gas pattern remains concerning for small bowel obstruction although slightly improved compared to 09/01/2019. Signed by: Mirza Abbasi DO on 09/02/2019 6:17 AM
[2019-09-02 06:38] LABS: ALANINE AMINOTRANSFERASE 11 IU/L (0-55); ALBUMIN 2.9 g/dL (3.5-5.0); ALBUMIN/GLOBULIN RATIO 0.8 (0.8-2.0); ALKALINE PHOSPHATASE 90 IU/L (40-150); BLOOD UREA NITROGEN 12 mg/dL (7-26); BUN/CREATININE RATIO 21 (6-25); CALCIUM 8.5 mg/dL (8.4-10.2); CARBON DIOXIDE 22 mmol/L (22-29); CHLORIDE 102 mmol/L (98-107); CREATININE, SERUM 0.56 mg/dL (0.57-1.11); EST GLOMERULAR FILTRATION RATE > 60 ML/MIN (60-); GLUCOSE 143 mg/dL (74-118); SODIUM 135 mmol/L (136-145)
--- NOTE | 2019-09-02 07:06 | NUR ---
received shift change report from overnight babysitter RN, walking rounds completed.
[2019-09-02] MEDS: INSULIN REGULAR, HUMAN 100 UNIT/1 ML 3ML VIAL SQ SCH ×5 (07:30→21:14)
--- NOTE | 2019-09-02 07:30 | NUR ---
PATIENT IN BED RESTING WITH NO S/S OF DISTRESS. 2 SMALL SURGICAL SITE TO MID ABDOMEN WITH DRESSING DRY AND INTACT. IV FLUID INFUSING ORDERED. BED IN LOWER POSITION, CALL LIGHT AT REACH.
--- NOTE | 2019-09-02 11:33 | NUR ---
PATIENT ASSISTED TO THE RESTROOM AND BACK TO BED. PATIENT HAD A BM. NG TUBE INTACT TO LEFT NARE, SUCTIONING SMALL AMOUNT OF GREENISH FLUID. BED IN LOWER POSITION, CALL LIGHT AT REACH.
--- NOTE | 2019-09-02 16:33 | NUR ---
PATIENT AMBULATING IN HALLWAY, NO COMPLAIN VOICED. WILL CONTINUE TO MONITOR.
--- NOTE | 2019-09-02 19:06 | NUR ---
PATIENT IN BED WITH HEAD OF BED ELEVATED. NG TUBE SUCTIONED 250CC OF GREENISH FLUID.
[2019-09-03] VITALS (10 sets, daily range): BP systolic 133–172; BP diastolic 65–89
[2019-09-03 06:10] LABS: BASOPHILS % 0.2 % (0.0-1.0); EOSINOPHILS # (AUTO) 0.2 (0.0-0.4); EOSINOPHILS % 2.2 % (0.0-6.0); HEMATOCRIT 34.9 % (34.2-44.1); HEMOGLOBIN 11.1 g/dL (12.0-16.0); LYMPHOCYTES % 29.3 % (18.0-39.1); MEAN CORPUSCULAR HEMOGLOBIN 28.9 pg (28-32); MEAN CORPUSCULAR HGB CONC 31.8 g/dL (31-35); MEAN CORPUSCULAR VOLUME 90.9 fL (81-99); MONOCYTES # (AUTO) 0.8 (0.2-0.8); MONOCYTES % 7.7 % (4.4-11.3); NEUTROPHILS # (AUTO) 6.1 (2.1-6.9); NEUTROPHILS % 59.8 % (38.7-80.0); PLATELET COUNT 441 x10e3/uL (140-360); RED BLOOD COUNT 3.84 x10e6/uL (3.6-5.1)
[2019-09-03 06:30] LABS: ALANINE AMINOTRANSFERASE 9 IU/L (0-55); ALBUMIN 2.5 g/dL (3.5-5.0); ALBUMIN/GLOBULIN RATIO 0.9 (0.8-2.0); ALKALINE PHOSPHATASE 68 IU/L (40-150); ANION GAP 13.2 mmol/L (8-16); BLOOD UREA NITROGEN 11 mg/dL (7-26); BUN/CREATININE RATIO 26 (6-25); CALCIUM 7.7 mg/dL (8.4-10.2); CARBON DIOXIDE 24 mmol/L (22-29); CHLORIDE 106 mmol/L (98-107); CREATININE, SERUM 0.43 mg/dL (0.57-1.11); EST GLOMERULAR FILTRATION RATE > 60 ML/MIN (60-); GLUCOSE 93 mg/dL (74-118); POTASSIUM 3.2 mmol/L (3.5-5.1); SODIUM 140 mmol/L (136-145)
--- NOTE | 2019-09-03 06:52 | NUR ---
RECEIVED REPORT FROM OFF-GOING NURSE. WALKING ROUNDS DONE. PATIENT IS RESTING IN BED. NO ACUTE DISTRESS NOTED. CALL LIGHT WITHIN REACH. BED IN THE LOWEST POSITION.
[2019-09-03] MEDS: INSULIN REGULAR, HUMAN 100 UNIT/1 ML 3ML VIAL SQ SCH ×4 (08:30→20:17)
[2019-09-03] MEDS: SODIUM CHLORIDE 0.9% 1000ML 1,000 ML IV SCH (10:14)
[2019-09-03] MEDS: KCL 40MEQ/0.9% SOD CHL 1,000 ML IV SCH ×2 (11:50→20:08)
--- NOTE | 2019-09-03 11:51 | Diagnostic Imaging Report ---
Exam: KUB - 2 views Indication: Small bowel obstruction Comparison: KUB of 09/02/2019, CT abdomen and pelvis of 09/01/2019 Findings: NG tube projects below the diaphragm with tip and side-port in the stomach. There has been interval improvement in the previously seen small bowel obstruction. Bowel gas pattern is now nonobstructive. No free air. Impression: NG tube in place. Interval improvement in small bowel obstruction, now with nonobstructive bowel gas pattern. No free air. Signed by: Nicki Stovall MD on 09/03/2019 11:48 AM
--- NOTE | 2019-09-03 19:10 | NUR ---
PT IS RESTING IN BED. RESPIRATION IS EVEN AND UNLABORED, NO DISTRESS NOTED. BED IN THE LOWEST POSITION, LOCKED, AND CALL LIGHT WITHIN REACH. WILL CONTINUE TO MONITOR.
--- NOTE | 2019-09-03 20:13 | NUR ---
PT DENIES ANY N/V. NG TUBE PULL WITHOUT INCIDENT. WILL CONTINUE TO MONITOR.
[2019-09-04] VITALS (9 sets, daily range): BP systolic 134–170; BP diastolic 65–86
[2019-09-04] MEDS: KCL 40MEQ/0.9% SOD CHL 1,000 ML IV SCH (04:15)
--- NOTE | 2019-09-04 06:42 | NUR ---
RECEIVED REPORT FROM OFF-GOING NURSE. WALKING ROUNDS DONE. PATIENT IS RESTING IN BED. NO ACUTE DISTRESS NOTED. CALL LIGHT WITHIN REACH. BED IN THE LOWEST POSITION.
[2019-09-04 07:12] LABS: ALANINE AMINOTRANSFERASE 10 IU/L (0-55); ALBUMIN 2.7 g/dL (3.5-5.0); ALBUMIN/GLOBULIN RATIO 0.9 (0.8-2.0); ALKALINE PHOSPHATASE 75 IU/L (40-150); BLOOD UREA NITROGEN 5 mg/dL (7-26); BUN/CREATININE RATIO 12 (6-25); CALCIUM 8.1 mg/dL (8.4-10.2); CARBON DIOXIDE 24 mmol/L (22-29); CHLORIDE 104 mmol/L (98-107); CREATININE, SERUM 0.43 mg/dL (0.57-1.11); EST GLOMERULAR FILTRATION RATE > 60 ML/MIN (60-); GLUCOSE 98 mg/dL (74-118); SODIUM 135 mmol/L (136-145)
[2019-09-04] MEDS: INSULIN REGULAR, HUMAN 100 UNIT/1 ML 3ML VIAL SQ SCH ×4 (07:30→20:23)
[2019-09-04] MEDS ORDERED: HYDRALAZINE HCL 20 MG/ML VIAL IV PRN (15:45)
[2019-09-04] MEDS: FAMOTIDINE 20 MG TAB PO SCH (16:14)
[2019-09-04] MEDS: LISINOPRIL 10 MG TAB PO SCH (16:14)
[2019-09-04] MEDS: GLYBURIDE 5 MG TAB PO SCH (16:15)
--- NOTE | 2019-09-04 19:08 | NUR ---
Report given to oncoming nurse. Walking rounds done. Patient is resting in bed. No acute distress noted. Daughter at bedside. Call light within reach. Bed in the lowest position.
[2019-09-04] MEDS ORDERED: ATORVASTATIN 20 MG TAB PO SCH (21:00)
[2019-09-05] VITALS: BP 139/65
[2019-09-05 04:00] VITALS: BP 145/65
[2019-09-05 06:24] LABS: BASOPHILS % 0.3 % (0.0-1.0); EOSINOPHILS # (AUTO) 0.2 (0.0-0.4); EOSINOPHILS % 1.7 % (0.0-6.0); HEMATOCRIT 43.3 % (34.2-44.1); HEMOGLOBIN 13.2 g/dL (12.0-16.0); LYMPHOCYTES # (AUTO) 2.5 (1.0-3.2); LYMPHOCYTES % 29.3 % (18.0-39.1); MEAN CORPUSCULAR HEMOGLOBIN 28.3 pg (28-32); MEAN CORPUSCULAR HGB CONC 30.5 g/dL (31-35); MEAN CORPUSCULAR VOLUME 92.7 fL (81-99); MONOCYTES # (AUTO) 0.6 (0.2-0.8); MONOCYTES % 6.6 % (4.4-11.3); NEUTROPHILS # (AUTO) 5.3 (2.1-6.9); NEUTROPHILS % 61.4 % (38.7-80.0); PLATELET COUNT 413 x10e3/uL (140-360); RED BLOOD COUNT 4.67 x10e6/uL (3.6-5.1); RED CELL DISTRIBUTION WIDTH 14.1 % (11.7-14.4)
[2019-09-05 06:31] LABS: INR 0.92; PROTHROMBIN TIME 12.9 seconds (11.9-14.5)
--- NOTE | 2019-09-05 06:32 | NUR ---
Received report from off-going nurse. Walking rounds done. Patient is resting in bed. No acute distress noted. Call light within reach. Bed in the lowest position.
--- NOTE | 2019-09-05 06:38 | Diagnostic Imaging Report ---
EXAM: Abdomen Radiograph 1 View(s) INDICATION: Small bowel obstruction COMPARISON: Abdominal radiograph 09/03/2019 FINDINGS: No abnormalities in the lower chest. No lines or tubes. A small bowel loop in the left mid abdomen is dilated and air-filled, diameter of 5 cm. No abnormal abdominal calcifications.. No abnormal soft tissue masses. No pneumoperitoneum. No acute osseous abnormality. Mild degenerative changes in the lumbar spine and pelvis. IMPRESSION: Persistent dilated small bowel loops concerning for persistent small bowel obstruction. Signed by: Mirza Abbasi DO on 09/05/2019 6:34 AM
[2019-09-05 06:40] LABS: ALANINE AMINOTRANSFERASE 20 IU/L (0-55); ALBUMIN 3.7 g/dL (3.5-5.0); ALBUMIN/GLOBULIN RATIO 0.9 (0.8-2.0); ALKALINE PHOSPHATASE 110 IU/L (40-150); ANION GAP 15.8 mmol/L (8-16); BLOOD UREA NITROGEN 5 mg/dL (7-26); BUN/CREATININE RATIO 9 (6-25); CALCIUM 9.9 mg/dL (8.4-10.2); CARBON DIOXIDE 25 mmol/L (22-29); CHLORIDE 101 mmol/L (98-107); CREATININE, SERUM 0.54 mg/dL (0.57-1.11); EST GLOMERULAR FILTRATION RATE > 60 ML/MIN (60-); GLUCOSE 125 mg/dL (74-118); POTASSIUM 3.8 mmol/L (3.5-5.1); SODIUM 138 mmol/L (136-145)
[2019-09-05 06:59] LABS: MAGNESIUM 2.2 MG/DL (1.3-2.1)
[2019-09-05] MEDS: GLYBURIDE 5 MG TAB PO SCH (07:28)
[2019-09-05] MEDS: INSULIN REGULAR, HUMAN 100 UNIT/1 ML 3ML VIAL SQ SCH ×2 (07:30→11:30)
[2019-09-05 07:31] VITALS: BP 159/70
[2019-09-05 07:51] VITALS: BP 159/70
[2019-09-05] MEDS: LISINOPRIL 10 MG TAB PO SCH (08:25)
[2019-09-05] MEDS: FAMOTIDINE 20 MG TAB PO SCH (08:25)
--- NOTE | 2019-09-05 10:08 | NUR ---
Notified Dr. Diaz of KUB results for patient, per MD patient can be discharged home.
[2019-09-05 12:00] VITALS: BP 143/72
--- NOTE | 2019-09-05 14:18 | NUR ---
Received DC order from Dr. Rivera, patient is in stable condition. IV line to right AC DCD with tip intact, pressure applied, no bleeding noted. Discharge teaching provided to patient, she verbalized understanding. Discharge folder and personal items on hand. Patient accompanied to private auto by staff.
== END 2019-09-05 14:20 | disposition home or self-care (01) | DRG 390 ==
LOC: ER 08:51 → ERHOLD 16:39 → MED/SURG3 19:52
PROVIDERS: ADMIT Internal Medicine; ATTEND Internal Medicine
DX: K56.52 Intestinal adhesions [bands] with complete obstruction (principal); I10 Essential (primary) hypertension; E11.9 Type 2 diabetes mellitus without complications; D64.9 Anemia, unspecified; E78.5 Hyperlipidemia, unspecified; Z82.49 Family history of ischemic heart disease and other diseases of the circulatory system; Z90.49 Acquired absence of other specified parts of digestive tract; Z88.0 Allergy status to penicillin; Z79.84 Long term (current) use of oral hypoglycemic drugs
CPT/HCPCS: 36415; 74018; 74019; 74177; 80053; 81001; 82270; 82550; 82553; 82948; 83605; 83690; 83735; 84484; 85025; 85610; 87040; 87086; 93005; 99284; J0692; J2270; J2405; J2550; J7030; Q9967

== ENCOUNTER → 2019-10-15 | Outpatient (CLI) | payer BC ==
[~2019-10-15] MED LIST changes: +GLYBURIDE5 MG PO
== END ==
LOC: MAMMO 09:56
PROVIDERS: ATTEND Internal Medicine
DX: Z12.31 Encounter for screening mammogram for malignant neoplasm of breast (principal)
CPT/HCPCS: 77067

== ENCOUNTER 2022-11-13 09:44 | Outpatient (RCR) | payer BC, OTHER ==
[~2022-11-13 09:44] MED LIST changes: +BIOTIN1 MG PO; +MAGNESIUM OXID400 MG PO; +POTASSIUM CHLO10 ME1 PO; +TRIPLE HELIX COL1 GM PO
== END 2022-12-03 ==
LOC: ST 09:44
PROVIDERS: ATTEND Psychiatry & Neurology Clinical Neurophysiology
DX: R47.1 Dysarthria and anarthria (principal); I69.991 Dysphagia following unspecified cerebrovascular disease; R13.10 Dysphagia, unspecified
CPT/HCPCS: 92523

== ENCOUNTER → 2022-11-20 | Outpatient (CLI) | payer OTHER | LOC: MAMMO 10:30 | PROVIDERS: ATTEND Family Medicine | DX: Z12.31 Encounter for screening mammogram for malignant neoplasm of breast (principal); I69.928 Other speech and language deficits following unspecified cerebrovascular disease | CPT/HCPCS: 74230; 77067 ==

== ENCOUNTER → 2023-11-24 | Outpatient (REF) | payer OTHER | LOC: MAMMO 08:10 | PROVIDERS: ATTEND Family Medicine | DX: Z12.31 Encounter for screening mammogram for malignant neoplasm of breast (principal) | CPT/HCPCS: 77067 ==

== ENCOUNTER → 2024-12-21 | Outpatient (REF) | payer OTHER ==
[~2024-12-21] MED LIST changes: +ACTOS15 MG PO; +ASPIRIN81 MG PO; +BENICAR20 MG PO; +METFORMIN HCL500 M2 PO; +MOUNJARO15 MG/0.5 SC
== END ==
LOC: MAMMO 08:44
PROVIDERS: ATTEND Family Medicine
DX: Z12.31 Encounter for screening mammogram for malignant neoplasm of breast (principal)
CPT/HCPCS: 77067

== ENCOUNTER → 2024-12-27 | Day surgery (SDC) | payer OTHER ==
[~2024-12-27] MED LIST changes: +ESMOLOL HCL 100MG/10ML 10 MG/ML VIAL ONE; +FENTANYL CITRATE/PF 100MCG/2 ML INJ ONE; +HYOSCYAMINE SULFATE 0.5 MG/ML INJ ONE; +LIDOCAINE HCL 2% LOCAL INJ 5 ML SDV VIAL INJ ONE; +PROPOFOL IV EMULSION 10 MG/ML 20 ML VIAL ONE
[2024-12-27] MEDS: LACTATED RINGER'S 1,000 ML ONE (11:16)
[2024-12-27 14:04] VITALS: TEMP 98.8
[2024-12-27 14:25] VITALS: BP 125/76; PULSE 110; RESP 18; O2SAT 99
== END | disposition home or self-care (01) ==
LOC: OR 10:52
PROVIDERS: ATTEND Internal Medicine Gastroenterology
DX: Z09 Encounter for follow-up examination after completed treatment for conditions other than malignant neoplasm (principal); Z86.0100 Personal history of colon polyps, unspecified; K64.8 Other hemorrhoids; Z71.3 Dietary counseling and surveillance; E11.9 Type 2 diabetes mellitus without complications; I10 Essential (primary) hypertension; Z71.89 Other specified counseling; E78.5 Hyperlipidemia, unspecified; E66.01 Morbid (severe) obesity due to excess calories; Z88.0 Allergy status to penicillin; Z88.8 Allergy status to other drugs, medicaments and biological substances; Z01.810 Encounter for preprocedural cardiovascular examination; Z79.82 Long term (current) use of aspirin; Z79.84 Long term (current) use of oral hypoglycemic drugs; Z79.85 Long-term (current) use of injectable non-insulin antidiabetic drugs; Z79.899 Other long term (current) drug therapy; Z68.32 Body mass index [BMI] 32.0-32.9, adult; Z86.73 Personal history of transient ischemic attack (TIA), and cerebral infarction without residual deficits
CPT/HCPCS: 45378; 93005; J1980; J2003; J2704; J3010; J7121